=== PATIENT | male | born 1955 | race Caucasian/White ===

== ENCOUNTER 2016-08-20 11:49 | Emergency (ER) | payer BC ==
[2016-08-20 12:40] VITALS: BP 122/81
--- NOTE | 2016-08-20 12:53 | ED ---
Throat Pain/Nasal Congestion - HPI Summary HPI Summary: Pt presents with complaints of sinus congestion, PND increasing x 2-3 weeks. Pt states x 3 days has had body aches, feeling fatigue. Pt has been spending time with his elderly mom who had pna recently. pt states has developed increased sinus drainage, cough. States feels like "settling in lungs." Pt denies CP, sob. Occasional wheeze. No fevers documented, but states episodes of chills and feeling warm. Pt has taken OTC APAP with little relief. - History of Current Complaint Chief Complaint: UCGeneralIllness Time Seen by Provider: 08/20/16 12:52 Hx Obtained From: Patient Onset/Duration: Gradual Onset, Lasting Days Severity: Mild Associated Signs And Symptoms: Positive: Negative. Negative: Wheezing Cough: Nonproductive - Allergies/Home Medications Allergies/Adverse Reactions: Allergies Allergy/AdvReac Type Severity Reaction Status Date / Time No Known Allergies Allergy Verified 08/20/16 12:32 Home Medications: Home Medications Lisinopril TAB* [Prinivil TAB*] 10 mg PO DAILY 08/20/16 [History Confirmed 08/20] Naproxen Sodium-Diphenhydramin [Aleve PM 220-25 mg] 1 tab BID PRN 08/20/16 [ History Confirmed 08/20/16] PMH/Surg Hx/FS Hx/Imm Hx Previously Healthy: Yes Cardiovascular History: Reports: Hx Hypertension - Cancer History Cancer Type, Location and Year: None - Surgical History Surgery Procedure, Year, and Place: denies Infectious Disease History: No Infectious Disease History: Denies: History Other Infectious Disease, Traveled Outside the [place] in Last 30 Days - Family History Known Family History: Positive: Other - three sibs with hemachromatosis, mom with breast lump - Social History Occupation: Unemployed Lives: Alone Alcohol Use: None Substance Use Type: Reports: None Smoking Status (MU): Never Smoked Tobacco Review of Systems Positive: Fever, Fatigue, Other - body aches. Negative: Chills Eyes: Negative Positive: Sore Throat, Nasal Discharge Cardiovascular: Negative Positive: Cough. Negative: Shortness Of Breath Gastrointestinal: Negative Negative: Vomiting, Nausea Genitourinary: Negative Musculoskeletal: Negative Skin: Negative Neurological: Negative Psychological: Normal All Other Systems Reviewed And Are Negative: Yes Physical Exam Triage Information Reviewed: Yes Vital Signs On Initial Exam: Initial Vitals Temp Pulse Resp BP Pulse Ox 99.7 F 91 18 122/81 97 08/20/16 12:34 08/20/16 12:34 08/20/16 12:34 08/20/16 12:34 08/20/16 12:34 Vital Signs Reviewed: Yes Appearance: Positive: Well-Appearing, No Pain Distress, Well-Nourished Skin: Positive: Warm, Skin Color Reflects Adequate Perfusion, Dry Head/Face: Positive: Normal Head/Face Inspection Eyes: Positive: Normal ENT: Positive: TMs normal - TM x 2 clear mild fluid left ear turbinates inflammed, boggy + PND mmoist no exudate, no erythema Neck: Positive: Supple, Nontender, No Lymphadenopathy Respiratory/Lung Sounds: Positive: Clear to Auscultation, Breath Sounds Present. Negative: Wheezes - speaking full easy sentences Cardiovascular: Positive: Normal, RRR. Negative: Murmur, Rub Abdomen Description: Positive: Nontender, No Organomegaly, Soft Bowel Sounds: Positive: Present Musculoskeletal: Positive: Normal, Strength/ROM Intact Neurological: Positive: Normal, Sensory/Motor Intact, Alert, Oriented to Person Place, Time Psychiatric: Positive: Normal AVPU Assessment: Alert - Camila Coma Scale Best Eye Response: 4 - Spontaneous Best Motor Response: 6 - Obeys Commands Best Verbal Response: 5 - Oriented Diagnostics - Vital Signs Vital Signs Temp Pulse Resp BP Pulse Ox 08/20/16 12:34 99.7 F 91 18 122/81 97 - Laboratory Lab Statement: Any lab studies that have been ordered have been reviewed, and results considered in the medical decision making process. EENT Course/Dx - Course Assessment/Plan: Pt with 3 weeks sinus congestion, pressure, PND, body aches, fatigue and chills. Pt with inflammed turbinates, PND one exam. Will give Rx flonase. Amox. secretion hygeine. motrin/apap - Diagnoses Provider Diagnoses: Sinusitis Discharge - Discharge Plan Condition: Stable Disposition: HOME Prescriptions: Amoxicillin (*) [Amoxicillin 875 MG (*)] 875 mg PO BID #20 tab Fluticasone NASAL SPRAY 50MCG* [Flonase NASAL SPRAY 50MCG*] 1 spray BOTH NARES DAILY #1 btl Patient Education Materials: Sinusitis (ED) Referrals: Vickey Arvizu MD [Primary Care Provider] - Additional Instructions: - Stay well hydrated. Drink plenty of non-alcoholic, non-caffinated beverages. - Take antibiotics as prescribed - Use nasal spray daily as prescribed - After you have been on antibiotics for 2 days - change your toothbrush and your pillowcase. These infections are spread by secretions - do NOT share eating or drinking utensils - clean items you share with other people such as cell phones, computer mouse, TV remote, computer tablets, etc - Alternate ibuprofen (Advil, Motrin) 600mg and Tylenol every 3 hours for pain or fever. Take with food. Do NOT take for more than 4-5 days. - Contact your doctor to schedule a follow-up appointmenet. Contact your doctor or return with questions or concerns
== END 2016-08-20 13:20 | disposition home or self-care (01) ==
LOC: UCCORT 11:49
DX: J32.9 Chronic sinusitis, unspecified (principal); I10 Essential (primary) hypertension
CPT/HCPCS: 99212; G0463

== ENCOUNTER 2017-01-23 18:24 | Emergency (ER) | payer BC | END 2017-01-23 19:59 | disposition left against medical advice (07) | LOC: UCCORT 18:24 | DX: T14.8XXA Other injury of unspecified body region, initial encounter (principal); W57.XXXA Bitten or stung by nonvenomous insect and other nonvenomous arthropods, initial encounter; Y93.9 Activity, unspecified; Y92.9 Unspecified place or not applicable; Z53.21 Procedure and treatment not carried out due to patient leaving prior to being seen by health care provider ==

== ENCOUNTER 2017-01-28 17:27 | Emergency (ER) | payer BC ==
[2017-01-28 17:40] VITALS: BP 119/78
--- NOTE | 2017-01-28 17:53 | UC ---
Skin Complaint HPI - HPI Summary HPI Summary: Had a tick bite last week. Now with a rash on the chest. - History of Current Complaint Chief Complaint: UCSkin Time Seen by Provider: 01/28/17 17:43 Stated Complaint: POSSIBEL INSECT BITE CHEST Hx Obtained From: Patient Onset/Duration: Gradual Onset, Lasting Days - 5, Worse Since - today Timing: Constant Onset Severity: Mild Current Severity: Moderate Location: Discrete - right upper chest. Character: Redness, Raised Aggravating Factor(s): Nothing Alleviating Factor(s): Nothing Associated Signs & Symptoms: Positive: Rash. Negative: Fever, Chills Related History: Insect Bite/Sting - tick - Allergy/Home Medications Allergies/Adverse Reactions: Allergies Allergy/AdvReac Type Severity Reaction Status Date / Time No Known Allergies Allergy Verified 01/28/17 17:40 Home Medications: Home Medications amLODIPine TAB* [Norvasc 5 mg TAB*] 5 mg PO DAILY 01/28/17 [History Confirmed ] Review of Systems Skin: Rash Is Patient Immunocompromised?: No All Other Systems Reviewed And Are Negative: Yes PMH/Surg Hx/FS Hx/Imm Hx Cardiovascular History: Hypertension - Surgical History Surgical History: None Surgery Procedure, Year, and Place: denies - Family History Known Family History: Positive: Hypertension, Other - three sibs with hemachromatosis, mom with breast lump Negative: Cardiac Disease, Diabetes - Social History Occupation: Employed Full-time Lives: Alone Alcohol Use: None Substance Use Type: None Smoking Status (MU): Never Smoked Tobacco Have You Smoked in the Last Year: No - Immunization History Most Recent Influenza Vaccination: NONE Most Recent Tetanus Shot: UTD Physical Exam Triage Information Reviewed: Yes Appearance: Well-Appearing, No Pain Distress, Well-Nourished Vital Signs: Initial Vital Signs Temp 98.2 F 01/28/17 17:35 Pulse 88 01/28/17 17:35 Resp 16 01/28/17 17:35 BP 119/78 01/28/17 17:35 Pulse Ox 98 01/28/17 17:35 Vital Signs Reviewed: Yes Eyes: Positive: Conjunctiva Clear Neck exam: Normal Respiratory Exam: Normal Cardiovascular Exam: Normal Musculoskeletal Exam: Normal Neurological Exam: Normal Psychological Exam: Normal Skin: Positive: rashes - target rash on the right upper chest. Course/Dx - Differential Diagnoses - Skin Complaint Differential Diagnoses: Cellulitis, Contact Dermatitis, Tick Born Illness - Diagnoses Provider Diagnoses: Acute Lyme disease rash. Erythema Chronica Migrans Discharge - Discharge Plan Condition: Stable Disposition: HOME Prescriptions: DOXYcycline CAP(*) [DOXYcycline 100MG CAP(*)] 100 mg PO BID #28 cap Patient Education Materials: Lyme Disease (ED), Tick Bite (ED), Doxycycline ( By mouth) Additional Instructions: For tick removal I recommend the Tick twister.
[2017-01-28] MEDS: DOXYcycline CAP(*) 100 MG PO ONE (18:10)
== END 2017-01-28 18:32 | disposition home or self-care (01) ==
LOC: UCCORT 17:27
DX: A69.20 Lyme disease, unspecified (principal)
CPT/HCPCS: 99212; A9270-GY; G0463

== ENCOUNTER 2017-06-24 11:44 | Emergency (ER) | payer BC ==
[2017-06-24 12:42] VITALS: BP 113/74
--- NOTE | 2017-06-24 12:54 | UC ---
Throat Pain/Nasal Daryn HPI - HPI Summary HPI Summary: sinus congestion, nonprod cough, earpain bilaterally, chills but no fever noted. body aches and pains for past couple of days. taking tylenol with some relief - fluid intake good, appetite and sleep not so good past few days - History of Current Complaint Chief Complaint: UCGeneralIllness Stated Complaint: SINUS COMPLAINT Time Seen by Provider: 06/24/17 12:46 Hx Obtained From: Patient Onset/Duration: Lasting Days Severity: Moderate Pain Intensity: 0 Cough: Nonproductive Associated Signs & Symptoms: Positive: Sinus Discomfort, Nasal Discharge - Epiglottits Risk Factors Epiglottis Risk Factors: Negative - Allergies/Home Medications Allergies/Adverse Reactions: Allergies Allergy/AdvReac Type Severity Reaction Status Date / Time No Known Allergies Allergy Verified 06/24/17 12:42 PMH/Surg Hx/FS Hx/Imm Hx Previously Healthy: Yes - Surgical History Surgical History: None Surgery Procedure, Year, and Place: denies - Family History Known Family History: Positive: Hypertension, Other - three sibs with hemachromatosis, mom with breast lump Negative: Cardiac Disease, Diabetes - Social History Occupation: Employed Full-time Lives: With Family Alcohol Use: None Substance Use Type: None Smoking Status (MU): Never Smoked Tobacco Have You Smoked in the Last Year: No - Immunization History Most Recent Influenza Vaccination: NONE Most Recent Tetanus Shot: UTD Review of Systems Constitutional: Chills, Fatigue Skin: Negative Eyes: Negative ENT: Ear Ache, Nasal Discharge, Sinus Congestion, Sinus Pain/Tenderness Respiratory: Cough - nonprod Cardiovascular: Negative Gastrointestinal: Negative Genitourinary: Negative Motor: Negative Neurovascular: Negative Musculoskeletal: Myalgia Neurological: Negative Psychological: Negative Is Patient Immunocompromised?: No All Other Systems Reviewed And Are Negative: Yes Physical Exam Triage Information Reviewed: Yes Appearance: Ill-Appearing Vital Signs: Initial Vital Signs Temp 98.9 F 06/24/17 12:38 Pulse 80 06/24/17 12:38 Resp 17 06/24/17 12:38 BP 113/74 06/24/17 12:38 Pulse Ox 97 06/24/17 12:38 Vital Signs Reviewed: Yes Eye Exam: Normal ENT: Positive: Pharyngeal erythema, Nasal congestion, TM bulging - bilaterally, Sinus tenderness Respiratory Exam: Normal Cardiovascular Exam: Normal Abdominal Exam: Normal Musculoskeletal Exam: Normal Neurological Exam: Normal Psychological Exam: Normal Skin Exam: Normal Throat Pain/Nasal Course/Dx - Course Course Of Treatment: declined influenza swab today. take abx with food to reduce GI upset - aware of common side effects. continue with fluids daily while on abx to prevent dehydration. tylenol or ibuprofen every 4-6 hours prn fever/pain - dose as directed on bottle. f/u prn - Differential Dx/Diagnosis Differential Diagnosis/HQI/PQRI: Influenza, Pharyngitis Provider Diagnoses: sinusitis Discharge - Sign-Out/Discharge Documenting (check all that apply): Discharge - Discharge Plan Condition: Good Disposition: HOME Prescriptions: Amoxicillin PO (*) [Amoxicillin 875 MG (*)] 875 mg PO BID 10 Days #20 tab Patient Education Materials: Sinusitis (ED) Referrals: Vickey Arvizu MD [Primary Care Provider] - - Billing Disposition and Condition Condition: GOOD Disposition: HOME
== END 2017-06-24 12:58 | disposition home or self-care (01) ==
LOC: UCCORT 11:44
DX: J32.9 Chronic sinusitis, unspecified (principal)
CPT/HCPCS: 99212; G0463

== ENCOUNTER 2018-12-04 07:53 | Emergency (ER) | payer BC ==
--- OUTSIDE RECORDS SUMMARY | 2018-12-04 08:10 | XMS REPORT | Continuity of Care Document ---
:1955 External Reference #:[id number] Author Name Vickey Arvizu MD (transmitted by agent of provider Zita Ritchie) Address [address] [place] [address] Care Team Providers Name Role Phone Vickey Arvizu MD - Family Care Team Information Electromedical Equipment Technician Medicine Juan J Wyman MD - Care Team Information Electromedical Equipment Technician [phone] Gastroenterology Christianne Padron M.D. 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 Social History Type Date Description Comments Sex Unknown ETOH Use Rarely consumes alcohol Tobacco Use Start: 04/02/74 End: Patient is a former smoker 04/02/94 Recreational Drug Use Denies Drug Use Smoking Status Reviewed: 11/13/18 Patient is a former smoker Allergies, Adverse Reactions, Alerts Description No Known Drug Allergies Medications Active Medications SIG Qnty Indications Ordering Provider Date Sildenafil Citrate use daily as 6tabs N52.9 Vickey 05/15/2018 needed MD Nolberto 100mg Tablets Lisinopril-Hydrochlor one daily 90tabs I10 Vickey 11/29/2015 othiazide MD Nolberto 20-25mg Tablets Naproxen 1 by mouth 2 180tabs Vickey 04/14/2015 375mg Tablets times a day MD Nolberto Immunizations CPT Code Status Date Vaccine Lot # [id number] Given 10/06/2009 Tdap - Tetanus/Diptheria/Acellular Pertussis [id number] Given 08/24/1999 Tetanus And Diptheria (Td) For Adult Use Preservative Free Vital Signs Date Vital Result Comment 11/13/2018 3:02pm Height 68.5 inches 5'8.50" Weight 211.00 lb Heart Rate 80 /min BP Systolic 108 mmHg BP Diastolic 74 mmHg Respiratory Rate 16 /min O2 % BldC Oximetry 98 % room air BMI (Body Mass Index) 31.6 kg/m2 05/15/2018 4:17pm Weight 238.00 lb BP Systolic 132 mmHg BP Diastolic 68 mmHg Results Description No Information Available Procedures Date Code Description Status 09/30/2016 377812157 Diabetic Retinal Eye Exam Completed 05/31/2016 12332363 Colonoscopy Completed Medical Devices Description No Information Available Encounters Description No Information Available Assessments Date Code Description Provider 11/13/2018 Z00.00 Encounter for general adult medical Vickey Arvizu MD examination without abnormal findings 11/13/2018 Z12.11 Encounter for screening for malignant Vickey Arvizu MD neoplasm of colon 11/13/2018 Z12.5 Encounter for screening for malignant Vickey Arvizu MD neoplasm of prostate 11/13/2018 E83.110 Hereditary hemochromatosis Vickey Arvizu MD 11/13/2018 I10 Essential (primary) hypertension Vickey Arvizu MD 11/13/2018 N52.9 Male erectile dysfunction, unspecified Vickey Arvizu MD Plan of Treatment Future Appointment(s):05/15/2019 4:30 pm - Vickey Arvizu MD at [facility]/13[facility]2018 - Vickey Arvizu MDZ00.00 Encounter for general adult medical examination without abnormal forluhkhP93.11 Encounter for screening for malignant neoplasm of ofslbR68.5 Encounter for screening for malignant neoplasm of prostateNew Labs:PSA Screening, Ordered: 11/13/18E83.110 Hereditary hemochromatosisNew Labs:CBC Auto Diff, Ordered: 11/13/18Iron & Iron Binding Capacity, Ordered: 11/13/18CBC Auto Diff, Ordered: 11/13/18Iron & amp; Iron Binding Capacity, Ordered: 11/13/18Follow up:6 months.I10 Essential ( primary) hypertensionNew Labs:Comp Metabolic Panel, Ordered: 11/13/18Lipid Profile (Trig/Chol/HDL), Ordered: 11/13/18Urine Microalbumin Random, Ordered: N52.9 Male erectile dysfunction, unspecified Functional Status Functional Condition Comment Date Status Glasses reading Active Mental Status Description No Information Available Referrals Description No Information Available
[2018-12-04 08:29] VITALS: BP 122/87
--- NOTE | 2018-12-04 08:46 | UC ---
Throat Pain/Nasal Daryn HPI - HPI Summary HPI Summary: sinus pain and pressure x 1 week + nasal congestion , pnd, cough , no fever, + chills and body aches - History of Current Complaint Chief Complaint: UCRespiratory Stated Complaint: SINUS COMPLAINT Time Seen by Provider: 12/04/18 08:33 Hx Obtained From: Patient Onset/Duration: Gradual Onset, Lasting Weeks - 1, Still Present Severity: Moderate Pain Intensity: 0 Cough: Nonproductive Associated Signs & Symptoms: Positive: Sinus Discomfort, Nasal Discharge. Negative: Wheezing, Hoarseness, Fever, Vomiting, Rash - Allergies/Home Medications Allergies/Adverse Reactions: Allergies Allergy/AdvReac Type Severity Reaction Status Date / Time No Known Allergies Allergy Verified 12/04/18 08:30 PMH/Surg Hx/FS Hx/Imm Hx - Additional Past Medical History Additional PMH: hemochromatosis Cardiovascular History: Hypertension - Surgical History Surgical History: None Surgery Procedure, Year, and Place: denies - Family History Known Family History: Positive: Hypertension, Other - three sibs with hemachromatosis, mom with breast lump Negative: Cardiac Disease, Diabetes - Social History Alcohol Use: Occasionally Substance Use Type: None Smoking Status (MU): Never Smoked Tobacco Have You Smoked in the Last Year: No - Immunization History Most Recent Influenza Vaccination: NONE Most Recent Tetanus Shot: UTD Review of Systems All Other Systems Reviewed And Are Negative: Yes Constitutional: Positive: Negative Skin: Positive: Negative Eyes: Positive: Negative ENT: Positive: Sore Throat, Nasal Discharge, Sinus Pain/Tenderness Respiratory: Positive: Cough Is Patient Immunocompromised?: No Physical Exam Triage Information Reviewed: Yes Appearance: Well-Appearing, No Pain Distress, Well-Nourished Vital Signs: Initial Vital Signs Temp 98.3 F 12/04/18 08:22 Pulse 77 12/04/18 08:22 Resp 16 12/04/18 08:22 BP 122/87 12/04/18 08:22 Pulse Ox 98 12/04/18 08:22 Vital Signs Reviewed: Yes Eye Exam: Normal Eyes: Positive: Conjunctiva Clear ENT: Positive: Normal ENT inspection, Hearing grossly normal, Pharynx normal, TMs normal, Tonsillar swelling, Tonsillar exudate, Sinus tenderness. Negative: TM bulging, TM dull, TM red Neck: Positive: Supple, Nontender, No Lymphadenopathy Respiratory: Positive: Chest non-tender, Lungs clear, Normal breath sounds Cardiovascular: Positive: RRR, No Murmur, Pulses Normal Throat Pain/Nasal Course/Dx - Differential Dx/Diagnosis Provider Diagnosis: Sinusitis Discharge ED - Sign-Out/Discharge Documenting (check all that apply): Patient Departure All imaging exams completed and their final reports reviewed: No Studies - Discharge Plan Condition: Stable Disposition: HOME Prescriptions: Amoxicillin/Clavulanate TAB* [Augmentin TAB 875*] 875 mg PO BID #20 tab Patient Education Materials: Sinusitis (ED) Referrals: Vickey Arvizu MD [Primary Care Provider] - If Needed - Billing Disposition and Condition Condition: STABLE Disposition: Home
== END 2018-12-04 08:50 | disposition home or self-care (01) ==
LOC: UCCORT 07:53
DX: J32.9 Chronic sinusitis, unspecified (principal); I10 Essential (primary) hypertension; E83.119 Hemochromatosis, unspecified
CPT/HCPCS: 99212; G0463

== ENCOUNTER 2019-04-04 11:02 | Emergency (ER) | payer BC ==
[2019-04-04 13:29] VITALS: BP 110/84
--- NOTE | 2019-04-04 13:45 | UC ---
Throat Pain/Nasal Daryn HPI - HPI Summary HPI Summary: 63-year-old male comes in with a chief complaint of sinusitis symptoms for more than 10 days. Is yellow rhinorrhea. Sourav sinus pressure. Feels like both of his nares are clogged. He has been using some [id number] medications with limited help. No recent fevers. No cough or chest congestion. - History of Current Complaint Chief Complaint: UCGeneralIllness Stated Complaint: SINUS COMPLAINT Time Seen by Provider: 04/04/19 13:29 Pain Intensity: 0 - Allergies/Home Medications Allergies/Adverse Reactions: Allergies Allergy/AdvReac Type Severity Reaction Status Date / Time No Known Allergies Allergy Verified 04/04/19 13:23 Home Medications: Home Medications Naproxen [Naproxen 375 mg tab] 375 mg PO BID PRN 04/04/19 [History Confirmed 06/19] PMH/Surg Hx/FS Hx/Imm Hx Previously Healthy: Yes Cardiovascular History: Hypertension - Surgical History Surgical History: None Surgery Procedure, Year, and Place: denies - Family History Known Family History: Positive: Hypertension, Other - three sibs with hemachromatosis, mom with breast lump Negative: Cardiac Disease, Diabetes - Social History Alcohol Use: Rare Substance Use Type: None Smoking Status (MU): Former Smoker Have You Smoked in the Last Year: No When Did the Patient Quit Smoking/Using Tobacco: 1996 - Immunization History Most Recent Influenza Vaccination: NONE Most Recent Tetanus Shot: UTD Review of Systems All Other Systems Reviewed And Are Negative: Yes Constitutional: Positive: Other - SEE HPI Skin: Positive: Negative Eyes: Positive: Negative ENT: Positive: Nasal Discharge, Sinus Congestion, Sinus Pain/Tenderness Respiratory: Positive: Negative Cardiovascular: Positive: Negative Gastrointestinal: Positive: Negative Motor: Positive: Negative Neurovascular: Positive: Negative Musculoskeletal: Positive: Negative Neurological: Positive: Negative Psychological: Positive: Negative Is Patient Immunocompromised?: No Physical Exam Triage Information Reviewed: Yes Appearance: Well-Appearing, No Pain Distress, Well-Nourished Vital Signs: Initial Vital Signs Temp 97.8 F 04/04/19 13:24 Pulse 77 04/04/19 13:24 Resp 16 04/04/19 13:24 BP 110/84 04/04/19 13:24 Pulse Ox 99 04/04/19 13:24 Vital Signs Reviewed: Yes Eye Exam: Normal Eyes: Positive: Conjunctiva Clear ENT: Positive: Pharyngeal erythema, Nasal congestion, Nasal drainage, TMs normal , Sinus tenderness Neck: Positive: Supple Respiratory: Positive: Lungs clear, Normal breath sounds, No respiratory distress Cardiovascular: Positive: RRR Musculoskeletal: Positive: Strength Intact, ROM Intact Neurological: Positive: Alert, Muscle Tone Normal Psychological: Positive: Age Appropriate Behavior Skin Exam: Normal Throat Pain/Nasal Course/Dx - Differential Dx/Diagnosis Provider Diagnosis: Sinusitis Discharge ED - Sign-Out/Discharge Documenting (check all that apply): Patient Departure All imaging exams completed and their final reports reviewed: No Studies - Discharge Plan Condition: Stable Disposition: HOME Prescriptions: Amoxicillin/Clavulanate TAB* [Augmentin TAB 875*] 875 mg PO BID #20 tab Fluticasone NASAL SPRAY 50MCG* [Flonase NASAL SPRAY 50MCG*] 2 spray BOTH NARES DAILY #1 btl Patient Education Materials: Sinusitis (ED) Referrals: Vickey Arvizu MD [Primary Care Provider] - Additional Instructions: FOLLOW UP WITH YOUR DOCTOR IF NOT COMPLETELY IMPROVED. GET REEVALUATED SOONER IF NOT IMPROVING OR WORSE OR ANY QUESTIONS OR CONCERNS. - Billing Disposition and Condition Condition: STABLE Disposition: Home
== END 2019-04-04 13:50 | disposition home or self-care (01) ==
LOC: UCCORT 11:02
DX: J32.9 Chronic sinusitis, unspecified (principal); I10 Essential (primary) hypertension; Z87.891 Personal history of nicotine dependence
CPT/HCPCS: 99212; G0463